=== PATIENT | female | born 1995 | race African-American/Black ===

== ENCOUNTER 2021-08-26 09:30 | Emergency (ER) | payer OTHER ==
[~2021-08-26] VITALS: Ht 152.4 cm; Wt 108.9 kg
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
[2021-08-26 10:41] LABS: ABSOLUTE NEUTROPHILS 5.7 thou/uL (1.4-8.2); BASOPHILS 1.3 % (0.0-2.0); HEMATOCRIT 39.7 % (37.0-47.0); HEMOGLOBIN 12.8 gm/dL (12.0-15.0); LYMPHOCYTES 19.5 % (24.0-44.0); MCH 27.9 pg (26.0-34.0); MCHC 32.3 g/dL (28.0-37.0); MCV 86.2 fL (80.0-100.0); MONOCYTES 3.2 % (1.0-8.0); PLATELET COUNT 267 thou/uL (150-400); RBC 4.61 mil/uL (4.20-5.00); RDW 14.5 % (10.5-14.5); WBC 7.6 thou/uL (4.0-11.0)
[2021-08-26 14:31] LABS: CALCIUM 9.5 mg/dL (8.5-10.1); CREATININE 0.9 mg/dL (0.6-1.0); POTASSIUM 4.4 mmol/L (3.5-5.1)
[2021-08-26 14:37] LABS: ALBUMIN 3.2 g/dL (3.4-5.0); TOTAL BILIRUBIN 0.5 mg/dL (0.2-1.0); TOTAL PROTEIN 8.2 g/dL (6.4-8.2)
[2021-08-26 16:06] VITALS: BP 141/102
--- NOTE | 2021-08-27 07:35 | EKG ---
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
== END 2021-08-26 16:09 ==
LOC: ER 09:30
PROVIDERS: Emergency Medicine
DX: F41.0 Panic disorder [episodic paroxysmal anxiety] (principal); E10.9 Type 1 diabetes mellitus without complications; K21.9 Gastro-esophageal reflux disease without esophagitis; I10 Essential (primary) hypertension; Z88.9 Allergy status to unspecified drugs, medicaments and biological substances

== ENCOUNTER 2021-11-01 20:06 | Inpatient (IN) | payer OTHER ==
[~2021-11-01] VITALS: Ht 167.6 cm; Wt 99.8 kg
--- NOTE | ~2021-11-01 | EMS ---
[address] [address] EMS Patient Care Report Name: ASHLY CARMEN Room #: REG [facility]#: [id number] Admission: 11/01/21 Attend Phys: Discharge: Date of : [birth year] Report #: [id number] THIS REPORT FOR: //name// Report Transmitted: 11/01/2021 20:29 EMS Care Summary [place], [place]/[facility] Incident [id number] @ 11/01/2021 19:36 Incident Location [address] [place] [address] Patient ASHLY CARMEN Female, 26 Years 1995 Patient Address [address] [place] [address] Patient History Diabetes,Hypertension (HTN),Gastro-Esophageal Reflux Disease (GERD),Depression,Anxiety,Post Traumatic Stress Disorder (PTSD),Mild cognitive impairment, Patient Allergies Other drug allergy, Patient Medications Hydrochlorothiazide (Hctz), Carvedilol, Albuterol, Olanzapine, Medroxyprogesterone, Flonase, Melatonin, Acetaminophen, Prazosin, Levemir, Senna, Humalog, Losartan, Bupropion, Chief Complaint abd pain Disposition Transported No Lights/[place] Dispatch Reason Abdominal Pain/Problems Transported To [address] [address] EMS Patient Care Report Name: ASHLY CARMEN Room #: REG [facility]#: [id number] Admission: 11/01/21 Attend Phys: Discharge: Date of : [birth year] Report #: [id number] pt found seated on bedside. she is a&o, c/o abd pain x 2 days and vomiting x 1. pt had lab work done today which all came back normal. wants pt seen for further eval. pt reports she is on control and does not have periods. she req eval at [facility]. pt to stretcher, transport w/o change. pt to triage. report to nurse. Initial Vitals @19:52P: 106,R: 18,BP: 260/140,Pain: 10/10,GCS: 14,SpO2: 96,Revised Trauma: 12, Assessments @19:45MENTAL:No Abnormalities,SKIN:No Abnormalities,HEENT:Head/Face: No Abnormalities,LUNG SOUNDS:General: Nausea,Right Upper: Other,General: Vomiting,Left Upper: Other,ABDOMEN:General: Nausea,Right Upper: Other,General: Vomiting,Left Upper: Other,PELVIS//GI:EXTREMITIES:PULSE:Radial: 2+ Normal,NEURO:No Abnormalities, Impression Abdominal Pain Procedures @19:45 ALS Assessment Response: Unchanged @19:46 Stretcher Response: Unchanged Timeline 19:34,Call Received 19:34,Dispatch Notified 19:36,Dispatched 19:37,En Route 19:42,On Scene 19:45,At Patient 19:45,ALS Assessment,Response: Unchanged 19:46,Stretcher,Response: Unchanged 19:49,Depart Scene 19:52,BP: 260/140 M,PULSE: 106,RR: 18 R,SPO2: 96 Ox,ETCO2: ,BG: ,PAIN: 10,GCS: 14, 19:58,At Destination 20:19,Call Closed Disclaimer v1.1 Copyright 2020 [employer] This EMS Care Summary contains data elements from the applicable legal record (which may be displayed differently). It is designed to provide pertinent information for the following purposes: continuity of care, clinical quality, and state data reporting. The complete legal record is available to ED staff and administrators of the receiving hospital in [employer] Patient Tracker. All data [facility] [address] [place] [address] EMS Patient Care Report Name: ASHLY CARMEN Room #: REG [facility]#: [id number] Admission: 11/01/21 Attend Phys: Discharge: Date of : [birth year] Report #: [id number] is provided "as is."
[2021-11-01 21:26] LABS: ABSOLUTE NEUTROPHILS 9.3 thou/uL (1.4-8.2); BASOPHILS 0.7 % (0.0-2.0); EOSINOPHILS 0.2 % (0.0-3.0); HEMATOCRIT 44.6 % (37.0-47.0); HEMOGLOBIN 14.9 gm/dL (12.0-15.0); LYMPHOCYTES 10.4 % (24.0-44.0); MCH 28.1 pg (26.0-34.0); MCHC 33.4 g/dL (28.0-37.0); MCV 84.1 fL (80.0-100.0); MONOCYTES 2.7 % (1.0-8.0); PLATELET COUNT 389 thou/uL (150-400); RDW 14.3 % (10.5-14.5); WBC 10.8 thou/uL (4.0-11.0)
[2021-11-01] MEDS ORDERED: ACETAMINOPHEN325 M1 PO (21:26)
[2021-11-01] MEDS ORDERED: PROAIR HFA8.5 GM INH (21:26)
[2021-11-01] MEDS ORDERED: LAXATIVE5 MG PO (21:27)
[2021-11-01] MEDS ORDERED: BUPROPION XL300 MG PO (21:28)
[2021-11-01 21:34] LABS: CALCIUM 10.7 mg/dL (8.5-10.1); CREATININE 1.4 mg/dL (0.6-1.0); POTASSIUM 5.1 mmol/L (3.5-5.1)
[2021-11-01 21:35] LABS: BE(vivo) -3.5 mmol/L (-2 to +3); HCO3 21.1 mmol/L (22.0-26.0); PCO2 VENOUS 37.4 mmHg (41.0-51.0); PO2 VENOUS 43.6 mmHg (35.0-45.0)
[2021-11-01 21:40] LABS: ALBUMIN 3.6 g/dL (3.4-5.0); TOTAL BILIRUBIN 0.6 mg/dL (0.2-1.0); TOTAL PROTEIN 9.7 g/dL (6.4-8.2)
[2021-11-01] MEDS ORDERED: HUMALOG KW100 UNIT/1 SUBQ (21:44)
[2021-11-01] MEDS ORDERED: LEVEMIR FL100 UNIT/2 SUBQ (21:45)
[2021-11-01] MEDS ORDERED: CARVEDILOL25 MG PO (21:46)
[2021-11-01] MEDS ORDERED: HYDROCHLOROTHIA25 M1 PO (21:46)
[2021-11-01] MEDS ORDERED: LOSARTAN POTASS50 MG PO (21:47)
[2021-11-01] MEDS ORDERED: OLANZAPINE7.5 MG PO (21:47)
[2021-11-01] MEDS ORDERED: PRAZOSIN HCL1 MG PO (21:47)
[2021-11-01] MEDS ORDERED: FLONASE 0.05%50 MCG NARES (21:48)
[2021-11-01] MEDS ORDERED: MEDROXYPRO150 MG/1 M IM (21:48)
[2021-11-01] MEDS ORDERED: PRAZOSIN HCL2 MG PO (21:48)
[2021-11-01] MEDS ORDERED: VIIBRYD40 MG PO (21:48)
[2021-11-02 01:18] VITALS: BP 186/107
[2021-11-02] MEDS ORDERED: HUMALOG100 UNIT/1 SUBQ (03:58)
[2021-11-02 05:30] VITALS: BP 126/78
[2021-11-02 06:35] LABS: HEMOGLOBIN 14.3 gm/dL (12.0-15.0); MCH 29.2 pg (26.0-34.0); MCHC 34.1 g/dL (28.0-37.0); MCV 85.7 fL (80.0-100.0); RBC 4.9 mil/uL (4.20-5.00); RDW 14.4 % (10.5-14.5)
[2021-11-02 06:51] LABS: CALCIUM 9.5 mg/dL (8.5-10.1); CREATININE 1.2 mg/dL (0.6-1.0); POTASSIUM 4.4 mmol/L (3.5-5.1)
[2021-11-02 07:54] VITALS: BP 190/116
[2021-11-02 12:04] LABS: CHOLESTEROL 280 mg/dL (<200); HDL CHOLESTEROL 42 mg/dL (>40); LDL CHOLESTEROL 188 mg/dL (<100); TC:HDL 6.7 Ratio (Not establshd); TRIGLYCERIDE 251 mg/dL (<150); VLDL 50 mg/dL (<40)
--- NOTE | 2021-11-02 15:46 | NUR ---
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 She has a legal guardian through the [facility] Public [facility] office, Paulette Castrejon. They are aware that she is here and have been updated along with the DON at [facility]. The pt's mother Ebony Marroquin is allowed to get updates and visit but all decisions or consents need to go through the PA's office. Their after hours line is [phone]. They will need to be notified at dc once pt is setup to return to [facility]. The pt can be difficult at times due to her mental health issues and they note that her mom can be helpful in encouraging compliance with cares. [facility] is holding her bed. A clincial updated was faxed. Please call their main line at [phone] or their DON Kate on her cell to arrange for her return [phone]. They will need dc instructions and summary faxed to [phone] and a chart copy sent with the pt. W/c van transport can be vouched and arranged by the unit rn per [facility] [phone].
[2021-11-02 20:36] VITALS: BP 158/89
[2021-11-02 20:39] VITALS: BP 124/85
[2021-11-03 06:19] VITALS: BP 173/103
--- NOTE | 2021-11-03 06:30 | NUR ---
ASSUMED CARE AT 2034, PT ADMITTED FROM THE ED, REPORTED NAUSEATED WITH ABD PAIN, MEDICATIONS ADMINISTERED PER REQUEST, REMAINS LAYING IN BED, COMPLIANT OF TX, NO ADVERSE REACTION NOTED WILL CONTINUE TO MONITOR.
[2021-11-03 07:25] VITALS: BP 149/85
[2021-11-03 08:13] LABS: ALBUMIN 2.8 g/dL (3.4-5.0); CALCIUM 9.1 mg/dL (8.5-10.1); TOTAL BILIRUBIN 0.7 mg/dL (0.2-1.0); TOTAL PROTEIN 7.4 g/dL (6.4-8.2)
[2021-11-03 11:07] VITALS: BP 149/97
[2021-11-03 15:42] VITALS: BP 147/77
--- NOTE | 2021-11-03 18:49 | NUR ---
PTS UP IN ROOM, REPORTS PAIN MEDICATION HELPED AND IS WORKING ON FOOD. A&OX4, CALM AND COOPERATIVE DURING THE SHIFT. FALL PRECAUTIONS MAINTAINED AND ENCOURAGED.
[2021-11-03 20:21] VITALS: BP 155/96
[2021-11-03 21:30] VITALS: BP 145/84
[2021-11-04 07:00] VITALS: BP 169/102
[2021-11-04 07:08] LABS: ALBUMIN 2.8 g/dL (3.4-5.0); CALCIUM 8.6 mg/dL (8.5-10.1); POTASSIUM 4.1 mmol/L (3.5-5.1); TOTAL BILIRUBIN 0.6 mg/dL (0.2-1.0); TOTAL PROTEIN 6.5 g/dL (6.4-8.2)
--- NOTE | 2021-11-04 07:57 | NUR ---
PT ASSESSMENT COMPLETED AND VSS. MEDS GIVEN ORDERED AND WELL TOLERATED. IVF RUNNING. UP TO THE BATHROOM WITH ASST. PAIN AND NAUSEA MEDICATIONS HELPFUL. PT SLEEPING WELL. WILL CONTINUE TO MONITOR FREQUENTLY.
--- NOTE | 2021-11-04 09:47 | NUR ---
PT SITTING UP ON SIDE OF BED. PT STATED SHE HAS ABD PAIN AND WANTED TO KNOW IF IT WAS TIME FOR PAIN MED. PT STATED PAIN IS 7 ON 1-10 SCALE AND FEELS LIKE A SHARP CONSTANT PAIN TO EPIGASTRIC AREA. PT ALSO STATED SHE HAS NOT HAD A BM SINCE 10/30. PT STATED SHE IS NOT PASSING GAS, NO NAUSEA. PT ON CLEAR LIQUIDS AND HAD THE TEA AND BROTH. PT STATED SHE IS NOT CONCERNED WITH LOW BLOOD SUGAR DUE TO SHE NEVER GETS LOW, ONLY HIGH SUGARS EVEN WHEN NOT EATING VERY MUCH. PT STATED DRS. TRIED TO CONTROL SUGARS WITH MEDS/INSULIN AND ARE UNABLE TOO. PT UP TO BATHROOM AND HAD UNSTEADY GAIT BACK TO BED. PT UP WIT STAND-BY ASSIST. LEFT ARM IS SWOLLEN FROM PREVIOUS IV. PT HAD NAUSEA MED THIS AM EARLY.
[2021-11-04 16:00] VITALS: BP 147/96
[2021-11-04 20:48] VITALS: BP 134/81
--- NOTE | 2021-11-05 04:15 | NUR ---
PT IS A/O X4 AND IS UP WITH SBA. MEDICATIONS GIVEN PER MAR. VSS. HS BS ELEVATED. INSULIN GIVEN DIRECTED. PT C/O STOMACH DISCOMFORT. SCHEDULED STOMACH MEDICATION GIVEN DIRECTED. FALL PRECUATIONS IN PLACE, CALL LIGHT IS WITHIN REACH.
[2021-11-05 07:47] VITALS: BP 113/65
[2021-11-05 09:15] VITALS: BP 113/65
[2021-11-05] MEDS ORDERED: NORCO5 PO (10:00)
[2021-11-10 09:29] LABS: IgG 1093
== END 2021-11-05 18:18 | DRG 438 ==
LOC: EDBD 20:06 → ER 20:06 → EROBS 23:11 → ADMC 11-02 10:10 → 4S 11-02 20:24
PROVIDERS: Hospitalist; Nurse Practitioner; Nurse Practitioner Family; ADMIT Internal Medicine; ATTEND Internal Medicine
DX: K85.90 Acute pancreatitis without necrosis or infection, unspecified (principal); N17.0 Acute kidney failure with tubular necrosis; K21.9 Gastro-esophageal reflux disease without esophagitis; F32.9 Major depressive disorder, single episode, unspecified; I10 Essential (primary) hypertension; E86.0 Dehydration; E10.65 Type 1 diabetes mellitus with hyperglycemia; R74.01 Elevation of levels of liver transaminase levels; F41.9 Anxiety disorder, unspecified; F63.9 Impulse disorder, unspecified; Z20.822 Contact with and (suspected) exposure to COVID-19; F43.10 Post-traumatic stress disorder, unspecified; E66.01 Morbid (severe) obesity due to excess calories; Z88.8 Allergy status to other drugs, medicaments and biological substances; Z83.3 Family history of diabetes mellitus; Z82.49 Family history of ischemic heart disease and other diseases of the circulatory system; Z81.8 Family history of other mental and behavioral disorders; Z79.4 Long term (current) use of insulin; Z87.11 Personal history of peptic ulcer disease; Z68.35 Body mass index [BMI] 35.0-35.9, adult; Z28.21 Immunization not carried out because of patient refusal; Z86.010 Personal history of colon polyps; Z90.49 Acquired absence of other specified parts of digestive tract
CPT/HCPCS: 10195